=== PATIENT | male | born 1950 | race Two or more races ===

== ENCOUNTER 2019-04-30 23:26 | Emergency (ER) | payer MEDICARE, OTHER ==
[2019-04-30] MEDS ORDERED: LORazepam 2 MG/ML Syringe IVPUSH ONE ×2 (23:32→23:48)
--- NOTE | 2019-04-30 23:37 | EDM.PDOC ---
ED HPI GENERAL MEDICAL PROBLEM - General Chief Complaint: General Stated Complaint: AMBULANCE Time Seen by Provider: 04/30/19 23:33 Source of Information: Reports: EMS History Limitations: Reports: Altered Mental Status - History of Present Illness INITIAL COMMENTS - FREE TEXT/NARRATIVE: EMS state was called by pt's sister who checks on him. pt lives alone. sister found pt hallucinating and naked. sister arrived states pt was naked and not making any sense when she got home from work tonight. sister states she lives with him and cares for him since their mother dies few months ago. he was a heavy drinker but seem to have slowed down abit. last drink was 18 days ago when she found few cans of beer. also he has not eaten any of the food she cooked for him the past 3 days since she found them still on the plates under his bed. sis states he seem ok at noon time before she left for work. - Related Data Allergies Allergy/AdvReac Type Severity Reaction Status Date / Time meperidine HCl [From Demerol] Allergy Facial Verified 06/09/15 19:00 Swelling Home Meds: Home Meds Amoxicillin [Amoxil] 500 mg PO Q8H 06/09/15 [History] Phenytoin Sodium Extended [Dilantin] 100 mg PO DAILY 06/09/15 [History] ED ROS GENERAL - Review of Systems Review Of Systems: ROS reveals no pertinent complaints other than HPI. ED EXAM, GENERAL - Physical Exam Exam: See Below Exam Limited By: No Limitations General Appearance: Alert, WD/WN, Moderate Distress, Other (confused, agitated) Eye Exam: Bilateral Eye: PERRL (pupils ess ER @ 4mm) Ears: Hearing Grossly Normal Throat/Mouth: Normal Voice, No Airway Compromise Head: Atraumatic Neck: Non-Tender, Full Range of Motion Respiratory/Chest: No Accessory Muscle Use, Rales, Rhonchi, Other (tachypnoea). No: Decreased Breath Sounds Cardiovascular: Regular Rate, Rhythm GI/Abdominal: Soft, Non-Tender Neurological: No Motor/Sensory Deficits, Confused, Disoriented Psychiatric: Other (agitated, confused) Skin Exam: Dry, Cool, Pallor Lymphatic: No Adenopathy Course - Vital Signs Last Recorded V/S: Last Vital Signs Temp 93.1 C H 05/01/19 00:49 Pulse 97 05/01/19 00:49 Resp 35 H 05/01/19 00:49 BP 107/54 L 05/01/19 00:49 Pulse Ox 68 L 05/01/19 00:49 - Orders/Labs/Meds Orders: Active Orders 24 hr Category Date Time Status EKG Documentation Completion [RC] STAT Care 04/30/19 23:32 Active Chest 1V Frontal [CR] Urgent Exams 05/01/19 00:16 Taken Head wo Cont [CT] Urgent Exams 05/01/19 00:16 Taken ABG [BLOOD GAS ARTERIAL] [BG] Stat Lab 05/01/19 00:25 Ordered CBC WITH AUTO DIFF [HEME] Stat Lab 04/30/19 23:40 Received COMPREHENSIVE METABOLIC PN,CMP [CHEM] Stat Lab 04/30/19 23:40 Results CULTURE BLOOD [BC] Stat Lab 05/01/19 00:46 Ordered DILANTIN,PHENYTOIN [CHEM] Stat Lab 04/30/19 23:40 Results ETOH [ETHANOL BLOOD MEDICAL] [CHEM] Stat Lab 04/30/19 23:40 Results RED BLOOD CELLS LP [BBK] Stat Lab 05/01/19 00:30 Results TROPONIN I [CHEM] Stat Lab 04/30/19 23:40 Results TYPE AND SCREEN [BBK] Stat Lab 05/01/19 00:30 Results Piperacillin/Tazobactam [Zosyn] 3.375 gm Med 05/01/19 00:47 Ordered Sodium Chloride 0.9% [Normal Saline] 100 ml IV ONETIME Sodium Chloride 0.9% [Normal Saline] 1,000 ml Med 05/01/19 00:30 Active IV ASDIRECTED Vancomycin 1 gm Med 05/01/19 00:47 Ordered Sodium Chloride 0.9% [Normal Saline] 250 ml IV ONETIME Transfuse RBC [Transfuse Red Blood Cells] [COMM] Stat Oth 05/01/19 00:29 Ordered Medication Orders Sodium Chloride (Normal Saline) 1,000 mls @ 999 mls/hr IV ASDIRECTED ALEXX Last Admin: 05/01/19 00:22 Dose: 999 mls/hr Piperacillin Sod/Tazobactam (Sod 3.375 gm/ Sodium Chloride) 100 mls @ 200 mls/ hr IV ONETIME ONE Stop: 05/01/19 01:16 Vancomycin HCl 1 gm/ Sodium (Chloride) 250 mls @ 167 mls/hr IV ONETIME ONE Stop: 05/01/19 02:16 Labs: Laboratory Tests 04/30/19 04/30/19 05/01/19 Range/Units 23:40 23:40 00:30 Sodium 140 (135-145) mmol/L Potassium 4.3 (3.6-5.0) mmol/L Chloride 113 H (101-111) mmol/L Carbon Dioxide < 5.0 L* (21.0-31.0) mmol/L Anion Gap 26.46344 BUN 15 (7-18) mg/dL Creatinine 1.1 (0.6-1.3) mg/dL Est Cr Clr Drug Dosing TNP Estimated GFR (MDRD) > 60 BUN/Creatinine Ratio 13.63 Glucose 187 H (74-105) mg/dL Lactic Acid > 11.0 H (0.5-2.2) mmol/L Calcium 8.1 L (8.4-10.2) mg/dl Total Bilirubin 1.2 H (0.2-1.0) mg/dL AST 33 (10-42) IU/L Alkaline Phosphatase 58 (42-121) IU/L Troponin I < 0.02 (0.00-0.02) ng/ml Total Protein 6.4 L (6.7-8.2) g/dl Albumin 3.0 L (3.2-5.5) g/dl Globulin 3.4 Albumin/Globulin Ratio 0.88 Ethyl Alcohol < 5 mg/dL Crossmatch See Detail Meds: Medications Generic Name Dose Route Start Last Admin Trade Name Freq PRN Reason Stop Dose Admin Sodium Chloride 1,000 mls @ 999 mls/hr 05/01/19 00:30 05/01/19 00:22 Normal Saline IV 999 mls/hr ASDIRECTED ALEXX Administration Piperacillin Sod/Tazobactam 100 mls @ 200 mls/hr 05/01/19 00:47 Sod 3.375 gm/ Sodium Chloride IV 05/01/19 01:16 ONETIME ONE Vancomycin HCl 1 gm/ Sodium 250 mls @ 167 mls/hr 05/01/19 00:47 Chloride IV 05/01/19 02:16 ONETIME ONE Discontinued Medications Generic Name Dose Route Start Last Admin Trade Name Freq PRN Reason Stop Dose Admin Lorazepam 1 mg 04/30/19 23:32 05/01/19 00:15 Ativan IVPUSH 04/30/19 23:33 Not Given ONETIME ONE Lorazepam 2 mg 04/30/19 23:48 04/30/19 23:49 Ativan IVPUSH 04/30/19 23:49 2 mg ONETIME ONE Administration - Re-Assessments/Exams Free Text/Narrative Re-Assessment/Exam: 05/01/19 00:[address] Patrick @ [facility] who kindly accepted pt Departure - Departure Time of Disposition: 00:53 Disposition: DC/Tfer to Acute Hospital 02 Condition: Poor Clinical Impression: Hypothermia due to non-environmental cause, Sepsis associated hypotension, Lactic acid acidosis - Discharge Information Forms: Interfacility Transfer EMTALA - My Orders Last 24 Hours: My Active Orders 04/30/19 23:32 EKG Documentation Completion [RC] STAT 04/30/19 23:40 CBC WITH AUTO DIFF [HEME] Stat COMPREHENSIVE METABOLIC PN,CMP [CHEM] Stat DILANTIN,PHENYTOIN [CHEM] Stat ETOH [ETHANOL BLOOD MEDICAL] [CHEM] Stat TROPONIN I [CHEM] Stat 05/01/19 00:16 Chest 1V Frontal [CR] Urgent Head wo Cont [CT] Urgent 05/01/19 00:25 ABG [BLOOD GAS ARTERIAL] [BG] Stat 05/01/19 00:29 Transfuse RBC [Transfuse Red Blood Cells] [COMM] Stat 05/01/19 00:30 RED BLOOD CELLS LP [BBK] Stat TYPE AND SCREEN [BBK] Stat Sodium Chloride 0.9% [Normal Saline] 1,000 ml IV ASDIRECTED 05/01/19 00:46 CULTURE BLOOD [BC] Stat 05/01/19 00:47 Piperacillin/Tazobactam [Zosyn] 3.375 gm Sodium Chloride 0.9% [Normal Saline] 100 ml IV ONETIME Vancomycin 1 gm Sodium Chloride 0.9% [Normal Saline] 250 ml IV ONETIME - Assessment/Plan Last 24 Hours: My Active Orders 04/30/19 23:32 EKG Documentation Completion [RC] STAT 04/30/19 23:40 CBC WITH AUTO DIFF [HEME] Stat COMPREHENSIVE METABOLIC PN,CMP [CHEM] Stat DILANTIN,PHENYTOIN [CHEM] Stat ETOH [ETHANOL BLOOD MEDICAL] [CHEM] Stat TROPONIN I [CHEM] Stat 05/01/19 00:16 Chest 1V Frontal [CR] Urgent Head wo Cont [CT] Urgent 05/01/19 00:25 ABG [BLOOD GAS ARTERIAL] [BG] Stat 05/01/19 00:29 Transfuse RBC [Transfuse Red Blood Cells] [COMM] Stat 05/01/19 00:30 RED BLOOD CELLS LP [BBK] Stat TYPE AND SCREEN [BBK] Stat Sodium Chloride 0.9% [Normal Saline] 1,000 ml IV ASDIRECTED 05/01/19 00:46 CULTURE BLOOD [BC] Stat 05/01/19 00:47 Piperacillin/Tazobactam [Zosyn] 3.375 gm Sodium Chloride 0.9% [Normal Saline] 100 ml IV ONETIME Vancomycin 1 gm Sodium Chloride 0.9% [Normal Saline] 250 ml IV ONETIME
[2019-05-01 00:14] LABS: CHLORIDE,CL 113 mmol/L (101-111); SODIUM,NA 140 mmol/L (135-145)
[2019-05-01 00:18] LABS: ANION GAP 26.30001
[2019-05-01] MEDS ORDERED: Sodium Chloride 0.9% 1,000 ML IV SCH (00:30)
[2019-05-01 00:46] LABS: BASE EXCESS ARTERIAL -24 mmol/L ((-2)-(+3)); BICARBONATE,ARTERIAL 3.5 mmol/L (22-26); O2 DELIVERY DEVICE NON REBR MASK; PO2 ARTERIAL 221 mmHg (70-100)
[2019-05-01] MEDS ORDERED: Piperacillin/Tazobactam 3.375 GM in Sodium Chloride 0.9% 100 ML IV ONE (00:47)
[2019-05-01 00:52] LABS: O2 SATURATION ARTERIAL 0 % (95-100); PCO2 ARTERIAL 10 mmHg (35-45)
[2019-05-01 01:07] VITALS: BP 106/46; PULSE 116
== END 2019-05-01 01:16 ==
LOC: DL.ED 23:26
DX: A41.9 Sepsis, unspecified organism (principal); I95.9 Hypotension, unspecified; E87.2 Acidosis; R68.0 Hypothermia, not associated with low environmental temperature; Z88.5 Allergy status to narcotic agent
CPT/HCPCS: 36415; 36430; 36600; 51702; 70450; 71045; 80053; 80185; 82803; 83605; 84484; 85025; 86850; 86900; 86901; 86920; 86922; 87040; 93005; 96361; 96374; 96375; 99285; G0480; J2060; J2543; J3370; J7030; J7050; P9016